=== PATIENT | female | born 1945 | race African-American/Black ===

== ENCOUNTER 2018-05-07 17:38 | Emergency (ER) | payer OTHER, MEDICAID ==
[~2018-05-07] VITALS: Ht 160 cm; Wt 61.2 kg
[2018-05-07 17:48] VITALS: BP_SYST 158
[2018-05-07 20:42] VITALS: BP_SYST 147
== END 2018-05-07 20:42 | disposition home or self-care (01) ==
LOC: SED 17:38
DX: T82.838A Hemorrhage due to vascular prosthetic devices, implants and grafts, initial encounter (principal); R03.0 Elevated blood-pressure reading, without diagnosis of hypertension; Z88.8 Allergy status to other drugs, medicaments and biological substances; Z91.041 Radiographic dye allergy status; Y92.89 Other specified places as the place of occurrence of the external cause
CPT/HCPCS: 99283

== ENCOUNTER 2018-07-13 11:46 | Emergency (ER) | payer OTHER, MEDICAID ==
[~2018-07-13] VITALS: Ht 167.6 cm; Wt 90.7 kg
[2018-07-13 11:53] VITALS: BP_SYST 169
[2018-07-13 13:11] LABS: BASOPHILS % (AUTO) 0.3 % (0.0-2.0); EOSINOPHILS % (AUTO) 0.4 % (0.0-4.0); HEMATOCRIT 39.8 % (36-48); HEMOGLOBIN 12.7 g/dL (12.0-16.0); LYMPHOCYTES % (AUTO) 8.7 % (20.5-51.5); MEAN CORPUSCULAR HEMOGLOBIN 30 pg (27-31); MEAN CORPUSCULAR HGB CONC 32 % (32-36); MEAN CORPUSCULAR VOLUME 93 fL (79.0-98.0); MONOCYTES # (AUTO) 1.1 K/uL (0.0-1.0); MONOCYTES % (AUTO) 9.2 % (1.7-9.3); NEUTROPHILS # (AUTO) 9.4 K/uL (1.8-7.7); NEUTROPHILS % (AUTO) 81.4 % (40.0-70.0); PLATELET COUNT (AUTO) 209 K/uL (130-430); RED BLOOD CELL COUNT(AUTO) 4.27 MIL/uL (4.2-6.2); RED CELL DISTRIBUTION WIDTH 17.7 % (9.0-15.0); WHITE BLOOD COUNT (AUTO) 11.5 K/uL (4.8-10.8)
[2018-07-13 13:20] LABS: ANION GAP 10 (5-15); CALCIUM 11.9 mg/dL (8.4-11.0); CHLORIDE 96 mmol/L (98-107); CREATININE 6.33 mg/dL (0.55-1.30); GLUCOSE 139 mg/dL (70-99); POTASSIUM 3.8 mmol/L (3.5-5.1); SODIUM SERUM 131 mmol/L (136-145); UREA NITROGEN, BLOOD 30 mg/dL (8-21)
[2018-07-13 13:21] LABS: INR 1.4 (0.8-1.2); PROTHROMBIN TIME 14.1 SECS (9.5-12.5)
[2018-07-13 13:36] LABS: ALANINE AMINOTRANSFERASE 13 U/L (12-78); ALBUMIN 3.3 g/dL (3.4-4.8); ASPARTATE AMINOTRANSFERASE 22 U/L (10-37); FREE T4 (FREE THYROXINE) 0.8 ng/dL (0.6-1.6); TOTAL BILIRUBIN 0.7 mg/dL (0.0-1.0)
[2018-07-13 13:40] LABS: ALCOHOL, BLOOD < 3 mg/dL (<10)
[2018-07-13 15:35] VITALS: BP_SYST 161
== END 2018-07-13 15:35 | disposition home or self-care (01) ==
LOC: SED 11:46
DX: I12.0 Hypertensive chronic kidney disease with stage 5 chronic kidney disease or end stage renal disease (principal); N18.6 End stage renal disease; R53.1 Weakness; Z88.8 Allergy status to other drugs, medicaments and biological substances; Z91.041 Radiographic dye allergy status
CPT/HCPCS: 36415; 70450; 71045; 74018; 80053; 82140; 83605; 83880; 84439; 84484; 85025; 85610; 87040; 93005; 99284; G0482

== ENCOUNTER 2019-05-11 02:58 | Inpatient (IN) | payer OTHER, MEDICAID ==
[~2019-05-11] VITALS: Ht 170.2 cm; Wt 73.9 kg
[2019-05-11 03:00] VITALS: BP_SYST 127
[2019-05-11 04:10] LABS: BASOPHILS # (AUTO) 0.1 K/uL (0.0-0.2); HEMOGLOBIN 10.6 g/dL (12.0-16.0); MEAN CORPUSCULAR VOLUME 88 fL (79.0-98.0); MONOCYTES # (AUTO) 0.7 K/uL (0.0-1.0)
[2019-05-11 04:15] LABS: HEMATOCRIT 32.6 % (36-48); LYMPHOCYTES % (AUTO) 25.5 % (20.5-51.5); MEAN CORPUSCULAR HEMOGLOBIN 29 pg (27-31); MEAN CORPUSCULAR HGB CONC 32 % (32-36); MONOCYTES % (AUTO) 9.4 % (1.7-9.3); NEUTROPHILS # (AUTO) 4.1 K/uL (1.8-7.7); NEUTROPHILS % (AUTO) 52.1 % (40.0-70.0); PLATELET COUNT (AUTO) 150 K/uL (130-430); RED CELL DISTRIBUTION WIDTH 17.5 % (9.0-15.0); WHITE BLOOD COUNT (AUTO) 7.9 K/uL (4.8-10.8)
[2019-05-11 04:25] LABS: ANION GAP 9 (5-15); CALCIUM 9.3 mg/dL (8.4-11.0); CHLORIDE 95 mmol/L (98-107); CREATININE 5.63 mg/dL (0.55-1.30); GLUCOSE 157 mg/dL (70-99); POTASSIUM 4.5 mmol/L (3.5-5.1); SODIUM SERUM 129 mmol/L (136-145); UREA NITROGEN, BLOOD 33 mg/dL (8-21)
[2019-05-11 04:31] LABS: ALANINE AMINOTRANSFERASE 9 U/L (12-78); ALBUMIN 3.3 g/dL (3.4-4.8); ASPARTATE AMINOTRANSFERASE 16 U/L (10-37); TOTAL BILIRUBIN 0.5 mg/dL (0.0-1.0)
[2019-05-11 09:35] VITALS: BP_SYST 124
[2019-05-11] MEDS ORDERED: ONDANSETRON HCL 4 MG/2 ML VIAL IVP PRN (10:45)
[2019-05-11] MEDS ORDERED: HYDROcodone/ACETAMIN 5-325 MG TAB (NORCO/ VICODIN) PO PRN (10:45)
[2019-05-11] MEDS ORDERED: HYDROcodone/ACETAMIN 10-325 MG TAB PO PRN (10:45)
[2019-05-11] MEDS ORDERED: ASPIRIN 81 MG TAB.CHEW PO ONE (10:45)
[2019-05-11] MEDS ORDERED: LORazepam 2 MG/ML VIAL IVP PRN (10:45)
[2019-05-11] MEDS ORDERED: ACETAMINOPHEN 325 MG TABLET PO PRN (10:45)
[2019-05-11] MEDS ORDERED: NORMAL SALINE 5 ML DISP.SYRIN IVF SCH (14:00)
[2019-05-11] MEDS: NORMAL SALINE 5 ML DISP.SYRIN IVF SCH ×2 (14:00→20:39)
[2019-05-11] MEDS ORDERED: ATORVASTATIN 20 MG TABLET PO ONE (15:00)
[2019-05-11] MEDS ORDERED: METOPROLOL SUCCINATE 25 MG TAB.SR.24H (TOPROL XL) PO ONE (15:00)
[2019-05-11 15:41] LABS: PROTHROMBIN TIME 10.1 SECS (9.5-12.5)
[2019-05-11 16:50] VITALS: BP_SYST 97
[2019-05-11] MEDS ORDERED: WARFARIN SODIUM 5 MG TABLET PO SCH (18:00)
[2019-05-12 00:48] VITALS: BP_SYST 133
[2019-05-12 04:00] VITALS: BP_SYST 135
[2019-05-12 06:10] VITALS: BP_SYST 154
[2019-05-12] MEDS: NORMAL SALINE 5 ML DISP.SYRIN IVF SCH ×3 (06:12→22:00)
[2019-05-12 06:26] LABS: ALANINE AMINOTRANSFERASE 11 U/L (12-78); ALBUMIN 3.3 g/dL (3.4-4.8); ANION GAP 9 (5-15); ASPARTATE AMINOTRANSFERASE 16 U/L (10-37); CALCIUM 9.4 mg/dL (8.4-11.0); CHLORIDE 95 mmol/L (98-107); GLUCOSE 92 mg/dL (70-99); PHOSPHORUS 5.9 mg/dL (2.7-4.5); POTASSIUM 5.5 mmol/L (3.5-5.1); SODIUM SERUM 131 mmol/L (136-145); TOTAL BILIRUBIN 0.5 mg/dL (0.0-1.0); UREA NITROGEN, BLOOD 57 mg/dL (8-21)
[2019-05-12 06:39] LABS: CREATININE 8.09 mg/dL (0.55-1.30)
[2019-05-12 06:42] LABS: BASOPHILS % (AUTO) 0.6 % (0.0-2.0); EOSINOPHILS # (AUTO) 0.9 K/uL (0.0-0.4); EOSINOPHILS % (AUTO) 11.6 % (0.0-4.0); HEMATOCRIT 32.9 % (36-48); HEMOGLOBIN 10.7 g/dL (12.0-16.0); LYMPHOCYTES # (AUTO) 2.9 K/uL (1.0-5.5); LYMPHOCYTES % (AUTO) 37.5 % (20.5-51.5); MEAN CORPUSCULAR HEMOGLOBIN 29 pg (27-31); MEAN CORPUSCULAR HGB CONC 33 % (32-36); MEAN CORPUSCULAR VOLUME 88 fL (79.0-98.0); MONOCYTES # (AUTO) 0.7 K/uL (0.0-1.0); MONOCYTES % (AUTO) 8.3 % (1.7-9.3); NEUTROPHILS # (AUTO) 3.3 K/uL (1.8-7.7); PLATELET COUNT (AUTO) 203 K/uL (130-430); RED BLOOD CELL COUNT(AUTO) 3.74 MIL/uL (4.2-6.2); RED CELL DISTRIBUTION WIDTH 17.6 % (9.0-15.0); WHITE BLOOD COUNT (AUTO) 7.8 K/uL (4.8-10.8)
[2019-05-12] MEDS: ASPIRIN 81 MG TAB.CHEW PO SCH (08:13)
[2019-05-12] MEDS: ATORVASTATIN 20 MG TABLET PO SCH (08:13)
[2019-05-12] MEDS: METOPROLOL SUCCINATE 25 MG TAB.SR.24H (TOPROL XL) PO SCH (08:13)
[2019-05-12 08:14] VITALS: BP_SYST 133
[2019-05-12 11:10] VITALS: BP_SYST 136
[2019-05-12 15:55] VITALS: BP_SYST 135
[2019-05-12] MEDS ORDERED: ASPI-1457 PO (16:33)
[2019-05-12] MEDS ORDERED: APIX2.5T PO (16:33)
[2019-05-12] MEDS ORDERED: LIP80 PO (16:33)
[2019-05-12] MEDS ORDERED: HYDR-4272 PO (16:33)
[2019-05-12] MEDS ORDERED: CARV25TA55 PO (16:33)
[2019-05-12] MEDS ORDERED: NOR10 PO (16:33)
[2019-05-12] MEDS ORDERED: ACET-73 PO (16:33)
[2019-05-12] MEDS ORDERED: LOSA25TA3 PO (16:33)
[2019-05-12] MEDS ORDERED: PRAZ1CAP5 PO (16:33)
[2019-05-12] MEDS ORDERED: LIDOINT TP (16:33)
[2019-05-12] MEDS ORDERED: DULO60CA41 PO (16:33)
[2019-05-12] MEDS ORDERED: DOCU-144 PO (16:33)
[2019-05-12] MEDS ORDERED: PRO40 PO (16:33)
[2019-05-12] MEDS ORDERED: FURO-149 PO (16:33)
[2019-05-12] MEDS ORDERED: REN800 PO (16:33)
[2019-05-12] MEDS ORDERED: RANO500T2 PO (16:33)
[2019-05-12] MEDS ORDERED: [UNRECOGNIZED DRUG - CODE] OP (16:33)
[2019-05-12] MEDS ORDERED: METO-540 PO (17:54)
[2019-05-12] MEDS ORDERED: LIP20 PO (17:54)
[2019-05-12] MEDS ORDERED: ASA81 PO (17:54)
[2019-05-12] MEDS ORDERED: WARF7.5T2 PO (17:54)
[2019-05-12] MEDS ORDERED: WARFARIN SODIUM 7.5 MG TABLET PO ONE (18:00)
[2019-05-13 00:12] VITALS: BP_SYST 151
[2019-05-13] MEDS: NORMAL SALINE 5 ML DISP.SYRIN IVF SCH (06:00)
[2019-05-13 06:11] LABS: ANION GAP 11 (5-15); CHLORIDE 97 mmol/L (98-107); GLUCOSE 87 mg/dL (70-99); PHOSPHORUS 5.8 mg/dL (2.7-4.5); POTASSIUM 5.5 mmol/L (3.5-5.1); SODIUM SERUM 134 mmol/L (136-145); UREA NITROGEN, BLOOD 70 mg/dL (8-21)
[2019-05-13 06:32] LABS: BASOPHILS % (AUTO) 0.5 % (0.0-2.0); EOSINOPHILS # (AUTO) 1.1 K/uL (0.0-0.4); EOSINOPHILS % (AUTO) 12.5 % (0.0-4.0); HEMATOCRIT 33.9 % (36-48); HEMOGLOBIN 10.8 g/dL (12.0-16.0); LYMPHOCYTES # (AUTO) 3.3 K/uL (1.0-5.5); LYMPHOCYTES % (AUTO) 36.8 % (20.5-51.5); MEAN CORPUSCULAR HEMOGLOBIN 29 pg (27-31); MEAN CORPUSCULAR HGB CONC 32 % (32-36); MEAN CORPUSCULAR VOLUME 90 fL (79.0-98.0); MONOCYTES # (AUTO) 0.8 K/uL (0.0-1.0); MONOCYTES % (AUTO) 9.3 % (1.7-9.3); NEUTROPHILS # (AUTO) 3.7 K/uL (1.8-7.7); NEUTROPHILS % (AUTO) 40.9 % (40.0-70.0); PLATELET COUNT (AUTO) 180 K/uL (130-430); RED BLOOD CELL COUNT(AUTO) 3.78 MIL/uL (4.2-6.2)
[2019-05-13 06:49] LABS: CREATININE 9.61 mg/dL (0.55-1.30)
[2019-05-13 08:00] VITALS: BP_SYST 133
[2019-05-13] MEDS: METOPROLOL SUCCINATE 25 MG TAB.SR.24H (TOPROL XL) PO SCH (08:51)
[2019-05-13] MEDS: ATORVASTATIN 20 MG TABLET PO SCH (08:51)
[2019-05-13] MEDS: ASPIRIN 81 MG TAB.CHEW PO SCH (08:51)
[2019-05-13 09:30] LABS: PROTHROMBIN TIME 10.4 SECS (9.5-12.5)
[2019-05-13 14:20] VITALS: BP_SYST 140
[2019-05-13 15:00] VITALS: BP_SYST 140
[2019-05-13] MEDS ORDERED: WARFARIN SODIUM 6 MG TABLET PO ONE (18:00)
== END 2019-05-13 15:05 | disposition home or self-care (01) | DRG 73 ==
LOC: SED 02:58 → SMU 07:05 → STU 07:21
PROVIDERS: ADMIT Preventive Medicine Preventive Medicine/Occupational Environmental Medicine; ATTEND Preventive Medicine Preventive Medicine/Occupational Environmental Medicine
PROC: 5A1D70Z Performance of Urinary Filtration, Intermittent, Less than 6 Hours Per Day (ICD-10-PCS; principal; 2019-05-13)
DX: G90.8 Other disorders of autonomic nervous system (principal); N18.6 End stage renal disease; N17.9 Acute kidney failure, unspecified; I13.2 Hypertensive heart and chronic kidney disease with heart failure and with stage 5 chronic kidney disease, or end stage renal disease; D68.61 Antiphospholipid syndrome; E87.1 Hypo-osmolality and hyponatremia; I50.22 Chronic systolic (congestive) heart failure; D63.1 Anemia in chronic kidney disease; E11.22 Type 2 diabetes mellitus with diabetic chronic kidney disease; E11.51 Type 2 diabetes mellitus with diabetic peripheral angiopathy without gangrene; E11.65 Type 2 diabetes mellitus with hyperglycemia; E88.09 Other disorders of plasma-protein metabolism, not elsewhere classified; I25.10 Atherosclerotic heart disease of native coronary artery without angina pectoris; E87.5 Hyperkalemia; I25.5 Ischemic cardiomyopathy; Z79.01 Long term (current) use of anticoagulants; Z91.15 Patient's noncompliance with renal dialysis; Z95.1 Presence of aortocoronary bypass graft; Z99.2 Dependence on renal dialysis; Z88.8 Allergy status to other drugs, medicaments and biological substances; Z88.1 Allergy status to other antibiotic agents; Z91.041 Radiographic dye allergy status; Z95.5 Presence of coronary angioplasty implant and graft; Z95.810 Presence of automatic (implantable) cardiac defibrillator
CPT/HCPCS: 36415; 71045; 80048; 80053; 83735-TC; 83880; 84100-TC; 84484; 85025; 85610-TC; 87081; 90935; 93005; 93306; 99285; G0378; J7030

== ENCOUNTER 2019-11-03 07:43 | Day surgery (SDC) | payer OTHER, MEDICAID, SELFPAY ==
[~2019-11-03 07:43] MED LIST: ACET-73 PO; ASA81 PO; ASPI-1457 PO; DOCU-144 PO; DULO60CA41 PO; HYDR-4272 PO; LIDOINT TP; LIP20 PO; METO-540 PO; NOR10 PO; PRAZ1CAP5 PO; PRO40 PO; RANO500T2 PO; REN800 PO; WARF7.5T2 PO; [UNRECOGNIZED DRUG - CODE] OP
[2019-11-03] MEDS: MIDAZOLAM HCL 5 MG/5 ML VIAL ONE ×2 (09:50→09:52)
[2019-11-03] MEDS: fentaNYL CITRATE/PF 100 MCG/2 ML AMP ONE ×2 (09:50→09:52)
[2019-11-03 10:00] VITALS: BP_SYST 140
== END 2019-11-03 11:30 | disposition home or self-care (01) ==
LOC: SMU 07:43 → SDS 07:43
PROVIDERS: ATTEND Internal Medicine
DX: R19.4 Change in bowel habit (principal); K63.5 Polyp of colon; E11.22 Type 2 diabetes mellitus with diabetic chronic kidney disease; I12.0 Hypertensive chronic kidney disease with stage 5 chronic kidney disease or end stage renal disease; N18.6 End stage renal disease; Z86.010 Personal history of colon polyps; E78.5 Hyperlipidemia, unspecified; D64.9 Anemia, unspecified; Z11.59 Encounter for screening for other viral diseases; Z98.0 Intestinal bypass and anastomosis status; I25.10 Atherosclerotic heart disease of native coronary artery without angina pectoris; Z86.718 Personal history of other venous thrombosis and embolism
CPT/HCPCS: 45380; 88305; 99152; G0378; J2250; J3010; J7030; U0003

== ENCOUNTER 2020-08-24 15:59 | Emergency (ER) | payer OTHER, MEDICAID ==
[~2020-08-24] VITALS: Ht 170.2 cm; Wt 72.6 kg
[2020-08-24 15:59] VITALS: BP_SYST 153
[~2020-08-24 15:59] MED LIST changes: +[UNRECOGNIZED DRUG - CODE] OP; -[UNRECOGNIZED DRUG - CODE] OP
[2020-08-24] MEDS: LIDOCAINE 1% 10 MG/ML, 20 ML MDV INJ ONE (16:33)
[2020-08-24 17:19] VITALS: BP_SYST 173
== END 2020-08-24 17:19 | disposition home or self-care (01) ==
LOC: SED 15:59
DX: T82.838A Hemorrhage due to vascular prosthetic devices, implants and grafts, initial encounter (principal); S41.112A Laceration without foreign body of left upper arm, initial encounter; I12.0 Hypertensive chronic kidney disease with stage 5 chronic kidney disease or end stage renal disease; N18.6 End stage renal disease; Z99.2 Dependence on renal dialysis; X58.XXXA Exposure to other specified factors, initial encounter; Y93.89 Activity, other specified; Y92.89 Other specified places as the place of occurrence of the external cause; Y99.8 Other external cause status
CPT/HCPCS: 12001; 99283; J2001